=== PATIENT | male | born 1960 | race Caucasian/White ===

== ENCOUNTER 2018-10-28 14:27 | Emergency (ER) | payer BC ==
[~2018-10-28] VITALS: Ht 175.3 cm; Wt 67.0 kg
[2018-10-28 15:21] LABS: BASOPHILS % 0.4 % (0.0-2.0); EOSINOPHILS % 1.1 % (0.0-5.0); HEMOGLOBIN. 14.8 g/dL (14.0-18.0); LYMPHOCYTES % 38.2 % (20.0-50.0); MEAN CORPUSCULAR HEMOGLOBIN 29.8 pg (28.0-32.0); MEAN CORPUSCULAR VOLUME 88.3 fL (80.0-94.0); MEAN PLATELET VOLUME 7.7 fl (7.4-10.4); MONOCYTES % 8.8 % (2.0-8.0); NEUTROPHILS % 51.5 % (40.0-76.0); PLATELET 207 x1000/uL (130-400); RED BLOOD CELL COUNT 4.98 mill/uL (4.7-6.1); RED CELL DISTRIBUTION WIDTH 13.3 % (11.6-14.6)
[2018-10-28 15:27] LABS: CHLORIDE 107 mEq/L (98-107)
[2018-10-28] MEDS ORDERED: HYDROCODONE/ACETAMINOPHEN 5/325MG TABLET PO ONE (17:30)
[2018-10-28] MEDS ORDERED: SODIUM CHLORIDE 0.9% 1,000 ML IV ONE (21:15)
[2018-10-28] MEDS ORDERED: ASPIRIN 81MG TABLET PO ONE (21:15)
[2018-10-28] MEDS ORDERED: MECLIZINE 25MG TABLET PO ONE (21:15)
[2018-10-29] MEDS: NITROGLYCERIN 0.4MG TABLET SL SL PRN ×2 (00:57→01:31)
[2018-10-29 02:01] VITALS: BP 113/68
== END 2018-10-29 02:04 | disposition short-term general hospital (02) ==
LOC: ER 14:27 → EDBEDREQ 21:25 → EDBEDREQTM 21:25 → CANRESERV 22:06 → ENRESERV 22:06 → ER 10-29 02:04 → CANBEDREQ 10-29 03:07
DX: I20.0 Unstable angina (principal); I10 Essential (primary) hypertension; R07.89 Other chest pain
CPT/HCPCS: 36415; 71045; 80053; 83880; 84484; 85025; 93005; 99285; J7030; Z7610; J8597